=== PATIENT | female | born 1995 ===

== ENCOUNTER 2023-12-10 12:49 | Outpatient (CLI) | payer OTHER, SELFPAY ==
--- NOTE | ~2023-12-10 | MR_ITS ---
EXAMINATION: MR pituitary wo/w con DATE: 12/10/2023 13:49 INDICATION: Abnormal results of other endocrine function studies. TECHNIQUE: Magnetic resonance imaging (MRI) of the brain and brainstem was performed without and with 13 mL MultiHance intravenous contrast. COMPARISON: None. FINDINGS: The pituitary is normal in size with height of 6 mm and concave superior margin. There is n o intracranial hemorrhage, acute infarction, or abnormal intracranial mass lesion. The ventricles are normal in size. The orbits are normal. There is mild mucosal thickening in the paranasal sinuses. Th e mastoid air cells are normal. IMPRESSION: 1. Normal brain. Normal pituitary. Reviewed, dictated and finalized at location A.
== END 2023-12-10 12:50 | disposition home or self-care (01) ==
PROVIDERS: PCP Obstetrics & Gynecology; Visit Provider Obstetrics & Gynecology
DX: R94.7 Abnormal results of other endocrine function studies (principal)
CPT/HCPCS: 70553; A9577